=== PATIENT | male | born 1960 | race Hispanic/Latino ===

== ENCOUNTER 2019-02-23 07:41 | Day surgery (SDC) | payer MEDICAID ==
[~2019-02-23] VITALS: Ht 172.7 cm; Wt 90.7 kg
[~2019-02-23 07:41] MED LIST: CARB-155 PO; CLON1TAB23 PO; LOSA25TA41 PO; OMEP40CA37 PO; RASA1TAB4 PO; SODIUM CHLORIDE 0.9% 1000ML 1,000 ML IV ONE; [UNRECOGNIZED DRUG - OTHER]
[2019-02-23 09:04] VITALS: BP 153/92
[2019-02-23 11:27] VITALS: BP 137/79
[2019-02-23] MEDS ORDERED: PROPOFOL 10 MG/ML 20ML VIAL IV ONE ×2 (11:31)
[2019-02-23 11:32] VITALS: BP 148/85
[2019-02-23 11:37] VITALS: BP 162/82
[2019-02-23 11:42] VITALS: BP 152/80
== END 2019-02-23 11:55 | disposition home or self-care (01) ==
LOC: ENDO 07:41 → DAH 07:41 → ENDO 11:55
PROVIDERS: ATTEND Internal Medicine
DX: Z12.11 Encounter for screening for malignant neoplasm of colon (principal); D12.4 Benign neoplasm of descending colon; K57.30 Diverticulosis of large intestine without perforation or abscess without bleeding; K64.0 First degree hemorrhoids; K44.9 Diaphragmatic hernia without obstruction or gangrene; K31.89 Other diseases of stomach and duodenum; G20 Parkinson's disease; R13.10 Dysphagia, unspecified; G25.81 Restless legs syndrome; K21.0 Gastro-esophageal reflux disease with esophagitis; Z90.49 Acquired absence of other specified parts of digestive tract; Z95.0 Presence of cardiac pacemaker; Z79.899 Other long term (current) drug therapy; K29.50 Unspecified chronic gastritis without bleeding
CPT/HCPCS: 43239; 45380; 88305; A4606; J2704 ×2; J7030